=== PATIENT | female | born 1950 | race Caucasian/White ===

== ENCOUNTER 2017-10-26 02:58 | Emergency (ER) | payer MEDICARE ==
[2017-10-26] MEDS: HYDROcodone/APAP 5/325MG 1 TAB TABLET PO (03:40)
== END 2017-10-26 04:15 | disposition home or self-care (01) ==
LOC: ER 02:58
DX: S83.92XA Sprain of unspecified site of left knee, initial encounter (principal); G89.29 Other chronic pain; Z88.2 Allergy status to sulfonamides; W00.0XXA Fall on same level due to ice and snow, initial encounter; Y93.89 Activity, other specified; Y92.330 Ice skating rink (indoor) (outdoor) as the place of occurrence of the external cause; Y99.8 Other external cause status
CPT/HCPCS: 29505; 73562; 99284-25